=== PATIENT | male | born 1955 | race Caucasian/White ===

== ENCOUNTER → 2020-03-15 09:59 | Outpatient (CLI) | payer MEDICARE, OTHER, SELFPAY ==
[2020-03-15 11:39] LABS: Add Manual Diff / Slide Review NO; Basophils Absolute Auto 0 /uL (0-100); Basophils Percent Auto 0.9 % (0-2); Eosinophils Absolute Auto 200 /uL (0-450); Eosinophils Percent Auto 3.6 % (2-4); Hematocrit 46.2 % (41-53); Hemoglobin 15.7 g/dL (13.5-17.5); Lymphocytes Absolute Auto 2100 /uL (1100-4500); Lymphocytes Percent Auto 38.3 % (25-40); Mean Corpuscular Hemoglobin 31.1 PG (26-34); Mean Corpuscular Volume 91.5 fL (80-100); Monocytes Absolute Auto 700 /uL (0-900); Monocytes Percent Auto 12.2 % (3-14); Neutrophils Absolute Auto 2500 /uL (1500-7000); Platelet Count 190 X10^3/uL (150-400); Red Blood Cell Count 5.05 X10^6/uL (4.5-5.9); Red Cell Distribution Width 13.4 % (11.6-14.8); White Blood Cell Count 5.5 X10^3/uL (4.5-11.0)
[2020-03-15 11:51] LABS: Alanine Aminotransferase 35 IU/L (<50); Albumin 4.7 g/dL (3.5-5.0); Albumin Globulin Ratio 1.4 (1.0-2.8); Alkaline Phosphatase 55 U/L (38-126); Aspartate Aminotransferase 34 IU/L (17-59); BUN Creatinine Ratio 19.1 (6-22); Bilirubin Total 1.9 mg/dL (0.2-1.3); Blood Urea Nitrogen 17 mg/dL (9-20); Calcium 9.8 mg/dL (8.4-10.2); Carbon Dioxide 31 mmol/L (22-32); Chloride 101 mmol/L (98-107); Cholesterol 211 mg/dL (140-199); Estimated Glomerular Filt Rate > 60.0 mL/min (>60); Globulin 3.3 g/dL (1.7-4.1); Glucose 103 mg/dL (80-110); HDL Cholesterol 75 mg/dL (40-60); HEMOLYSIS < 15 (0-50); LDL Cholesterol Calculated 121 mg/dL (<100); Potassium 4.3 mmol/L (3.4-5.1); Sodium 137 mmol/L (137-145); Triglycerides 74 mg/dL (35-150)
[2020-03-15 12:21] LABS: Prostate Specific Antigen Scrn 1.01 ng/mL (0.1-4.0)
[2020-03-15 12:50] LABS: TSH w/ Reflex to FT4 2.28 uIU/mL (0.47-4.68)
[2020-03-18 10:08] LABS: Fecal Immunochemical Test Positive (Negative)
== END ==
PROVIDERS: PCP Internal Medicine; Referring Provider Internal Medicine; Visit Provider Internal Medicine
DX: G47.33 Obstructive sleep apnea (adult) (pediatric) (principal); Z13.1 Encounter for screening for diabetes mellitus; Z13.220 Encounter for screening for lipoid disorders; Z13.6 Encounter for screening for cardiovascular disorders; I10 Essential (primary) hypertension; Z12.5 Encounter for screening for malignant neoplasm of prostate; Z12.11 Encounter for screening for malignant neoplasm of colon
CPT/HCPCS: 36415; 80053; 80061; 82274; 84443; 85025; G0103

== ENCOUNTER → 2020-04-22 13:27 | Outpatient (CLI) | payer MEDICARE, OTHER, SELFPAY ==
[2020-04-23 10:09] LABS: COVID19 Sendout Not Detected (Not Detect)
== END ==
PROVIDERS: PCP Internal Medicine; Visit Provider Physician Assistant
DX: Z11.59 Encounter for screening for other viral diseases (principal)
CPT/HCPCS: 87635

== ENCOUNTER 2020-04-25 07:43 | Day surgery (SDC) | payer MEDICARE, OTHER, SELFPAY ==
--- NOTE | 2020-04-25 | PATH_ITS ---
[facility] Accession Number: [id number] . 01 Material submitted: . colon - COLON POLYP AT 70CM . 01 Clinical history: . COLONOSCOPY . 02 Diagnosis: Colon, Polyp at 70 cm, Biopsy: Tubular adenoma. MRV 04/30/2020 1337 Local . 02 Electronically signed: . Kaycee Kraus MD, Pathologist NPI- [id number] . 01 Gross description: . The specimen is received in formalin, labeled 70 cm colon polyp and consists of three flores-pink fragments of soft tissue measuring 0.6 x 0.5 x 0.2 cm in aggregate. The specimen is entirely submitted in cassette A1. ([id number]) /[facility] 04/26/2020 1711 Local . 02 Pathologist provided ICD-10: D12.6 . 02 CPT . 897990 Performed at: 01 [facility] [address] [id number] MD Satya Alvarez MD Phone: [phone] Performed at: 02 [facility] [address] [place], [place] [id number] MD Kaycee Kraus MD Phone: [phone]
[2020-04-25 08:06] VITALS: BP 150/96; PULSE 66; RESP 18; TEMP 36.1; O2SAT 99; BMI 25.4
[2020-04-25] MEDS: LACTATED RINGERS 1,000 ML 200 ML IV (08:21)
--- NOTE | 2020-04-25 08:29 | PM.PREOP ---
Pre-operative Note COVID-19 COVID-19 status: Negative Result date/Date tested (Pos, Neg/Pending): 04/22/20 Interval Note History & Physical reviewed/Exam performed by Physician: Yes Changes to H&P: No ASA Class (for procedural sedation): I
[2020-04-25] MEDS: fentaNYL 250 MCG/5 ML INJ IV ×4 (08:38→08:42)
[2020-04-25] MEDS: MIDAZOLAM 5 MG/5 ML VIAL IV ×4 (08:38→08:42)
--- NOTE | 2020-04-25 08:58 | PM.OP.ENDO ---
Operative Date/Time/Diagnoses Date of procedure: 04/25/20 Time of procedure: 08:58 Pre-op diagnosis: Positive fit test. This is his 1st colonoscopy. Post-op diagnosis: same (Small Polyp at 70 cm from the anal verge) Procedure & Clinicians Study performed: Colonoscopy with cold biopsy Same procedure as scheduled: Yes Indications: Screening. Positive fit test. Surgeon: Thom Petersen Procedure Notes SCOAP/Timeout: Performed Procedure in detail: The patient was placed in the left lateral decubitus position and underwent IV sedation directed by the surgeon consisting of fentanyl and Versed. Digital exam was unremarkable. His prostate is flat without mass.. The scope was inserted and advanced through the rectum into the sigmoid, descending, transverse, and ascending colon. Patient had extensive sigmoid diverticulosis and 1 or 2 ascending colon diverticuli.. The cecum was reached identified by the ileocecal valve and the appendiceal opening. The ileocecal valve was successfully cannulated. The terminal ileum was normal in appearance. The scope was gradually brought out. One Polyp was found at 70 cm from the anal verge. It was biopsied and removed.. The scope ultimately was retroflexed in the rectum. The appearance was normal. The scope was removed and the patient tolerated the procedure well. The prep was very good Scope withdrawal time: 6 minutes(7.25 total) Sedation minutes: 18 Findings: diverticulosis and polyp (One polyp at 70 cm from the anal verge) Specimen(s): other (Polyp) Complications: none Post-procedure Recommendations: Colonscopy in 5 years (If the biopsy is not adenomatous 10 years would be more appropriate.) Follow up: as needed Disposition: PACU
[2020-04-25 09:04] VITALS: BP 134/90; PULSE 68; RESP 14; TEMP 36.8; O2SAT 96
[2020-04-25 09:10] VITALS: BP 125/96; PULSE 73; RESP 13; O2SAT 96
[2020-04-25 09:14] VITALS: BP 133/86; PULSE 67; RESP 14; O2SAT 97
[2020-04-25 09:25] VITALS: BP 131/85; PULSE 67; RESP 10; O2SAT 97
[2020-04-25 09:55] VITALS: BP 135/87; PULSE 71; RESP 16; TEMP 36.5; O2SAT 98
== END 2020-04-25 09:57 | disposition home or self-care (01) ==
PROVIDERS: PCP Internal Medicine; Referring Provider Specialist; Visit Provider Specialist
PROC: 0DJD8ZZ Inspection of Lower Intestinal Tract, Via Natural or Artificial Opening Endoscopic (ICD-10-PCS; CPT 45378; principal; 2020-04-25 08:45)
DX: R19.5 Other fecal abnormalities (principal); G47.33 Obstructive sleep apnea (adult) (pediatric); K57.30 Diverticulosis of large intestine without perforation or abscess without bleeding; D12.6 Benign neoplasm of colon, unspecified
CPT/HCPCS: 45380; 99152; J2250; J3010

== ENCOUNTER → 2020-10-31 09:49 | Outpatient (CLI) | payer MEDICARE, OTHER, SELFPAY ==
[2020-10-31] MEDS: COVID-19 VACC, Ad26(JANSSEN)/PF 0.5 ML IM (09:56)
== END ==
PROVIDERS: PCP Internal Medicine; Visit Provider Internal Medicine
DX: Z23 Encounter for immunization (principal)
CPT/HCPCS: 0031A; 91303

== ENCOUNTER → 2020-12-16 17:59 | Outpatient (CLI) | payer MEDICARE, OTHER, SELFPAY ==
--- NOTE | 2020-12-16 | DI.MRI.S_ITS ---
PROCEDURE: MR LUMBAR SPINE WO CON INDICATIONS: Spinal stenosis, lumbar region with neurogenic cla TECHNIQUE: Noncontrast sagittal T1 spin echo and T2 fast echo, coronal T2, sagittal STIR, axial T1 and T2 fast spin echo through the lumbar spine. In cases with scoliosis, additional coronal T2 fast spin echo may be performed. COMPARISON: [facility], CR, XR LUMBAR SPINE WITH OLBIQUES PLUS FLEXION EXTENSION, 12/09/2020, 15:13. FINDINGS: Image quality: Excellent. Alignment and Curvature: 5 lumbar type vertebral bodies are present by plain film. Moderate leftward curvature of the lumbar spine is present. Mild grade 1 retrolisthesis of L2 on L3. Bone Marrow: Marrow is of normal overall signal. No acute vertebral body compression fractures. Mild reactive signal within the endplates adjacent to the T T12-L1, L1-L2, L2-L3, L3-L4, and L4-L5 intervertebral discs. Spinal Cord: Conus medullaris terminates at the L1-L2 disc space level. Visualized cord demonstrates normal signal and size. Paraspinous Soft Tissues: No paravertebral masses. T12-L1: Moderate disc height loss and desiccation. Mild diffuse disc bulge. Mild facet and ligamentum flavum hypertrophy. Mild canal stenosis. Mild bilateral foraminal stenosis. L1-L2: Mild disc desiccation and diffuse disc bulge. Mild facet and ligamentum flavum hypertrophy. Mild canal stenosis. Mild bilateral foraminal stenosis. L2-L3: Mild disc desiccation and disc height loss. Mild diffuse disc bulge. Mild canal stenosis. Mild bilateral foraminal stenosis. L3-L4: Mild disc height loss and desiccation. Mild diffuse disc bulge. Mild facet and ligamentum flavum hypertrophy. Mild epidural lipomatosis. Mild canal stenosis. Mild bilateral foraminal stenosis. L4-L5: Mild disc height loss. Moderate disc desiccation. Mild diffuse disc bulge. Mild facet and ligamentum flavum hypertrophy. Mild canal stenosis. Moderate left and mild right foraminal stenosis. L5-S1: Mild disc height loss and desiccation. Mild diffuse disc bulge with superimposed right posterolateral disc protrusion. Mild bilateral facet hypertrophy. Mild canal stenosis. Moderate left and mild right subarticular foraminal stenosis. Compression and posterior deviation of the right S1 nerve root within the lateral recess. IMPRESSION: 1. Multilevel degenerative disc and facet disease, as well as ligamentum flavum hypertrophy and epidural lipomatosis. 2. Mild multilevel canal stenosis. 3. Multilevel foraminal stenosis, worst at L4-L5 and L5-S1, where there are moderate foraminal stenosis. 4. L5-S1 disc protrusion, causing compression and posterior deviation of the right S1 nerve root. Recommend correlation with clinical symptoms to ascertain relevance of this finding. Dictated by: Jose Arriola M.D. on 12/17/2020 at 9:38 Approved by: Jose Arriola M.D. on 12/17/2020 at 9:42
== END ==
PROVIDERS: PCP Internal Medicine; Referring Provider Physical Medicine & Rehabilitation Pain Medicine; Visit Provider Physical Medicine & Rehabilitation Pain Medicine
DX: M48.062 Spinal stenosis, lumbar region with neurogenic claudication (principal); M51.36 Other intervertebral disc degeneration, lumbar region; M51.37 Other intervertebral disc degeneration, lumbosacral region; M48.07 Spinal stenosis, lumbosacral region; M51.27 Other intervertebral disc displacement, lumbosacral region; E88.2 Lipomatosis, not elsewhere classified
CPT/HCPCS: 72148

== ENCOUNTER → 2025-03-27 08:10 | Outpatient (CLI) | payer MEDICARE, SELFPAY ==
[2025-03-27 09:51] LABS: Alanine Aminotransferase 26 IU/L (<50); Albumin 4.6 g/dL (3.5-5.0); Albumin Globulin Ratio 1.5 (1.0-2.8); Alkaline Phosphatase 61 U/L (38-126); Blood Urea Nitrogen 13 mg/dL (9-20); Calcium 9.3 mg/dL (8.4-10.2); Carbon Dioxide 26 mmol/L (22-32); Chloride 102 mmol/L (98-107); Cholesterol 204 mg/dL (140-199); Estimated Glomerular Filt Rate > 60 mL/min (>60); Globulin 3.0 g/dL (1.7-4.1); Glucose 93 mg/dL (70-99); HDL Cholesterol 69 mg/dL (40-60); HEMOLYSIS < 15 (0-50); Potassium 4.4 mmol/L (3.4-5.1); Sodium 136 mmol/L (137-145); Total Protein 7.6 g/dL (6.3-8.2); Triglycerides 71 mg/dL (35-150)
== END ==
PROVIDERS: PCP Internal Medicine; Referring Provider Internal Medicine; Visit Provider Internal Medicine
DX: Z13.6 Encounter for screening for cardiovascular disorders (principal); Z12.5 Encounter for screening for malignant neoplasm of prostate; E80.4 Gilbert syndrome; Z13.220 Encounter for screening for lipoid disorders; Z13.1 Encounter for screening for diabetes mellitus
CPT/HCPCS: 36415; 80053; 80061; G0103

== ENCOUNTER 2025-05-30 08:56 | Day surgery (SDC) | payer MEDICARE, SELFPAY ==
[2025-05-30 09:39] VITALS: BP 142/92; PULSE 86; RESP 16; TEMP 36.1; O2SAT 100
[2025-05-30] MEDS: LACTATED RINGERS 1,000 ML 42 ML IV (09:52)
--- NOTE | 2025-05-30 10:11 | P.HP_ITS ---
History of Present Illness History of Present Illness Date Patient Seen: 05/30/25 Chief complaint: Screening Colonoscopy [facility] Medical History Cataracts, bilateral (~2013) History of adenomatous polyp of colon Diverticular disease of colon Vision disorder Chicken pox Vertigo (~1999) Tinnitus Hemorrhoid (~2017) Gilbert syndrome Cataract Retinal detachment Hayfever Obstructive sleep apnea of adult Surgical History Anesthesia History of eye surgery (~2014) Family History Father Hypertension Heart disease Smoker Overweight Hyperlipidemia Mother Melanoma Brain tumor Brother Cancer Brother Hypertension Hyperlipidemia Brother Mental health problem Sister Suicide Mental health problem Social History marital status: household members: spouse occupational status: previously employed Smoking Status: Never smoker alcohol intake: current substance use type: marijuana Meds Home Medications and Allergies Home Medications ?Medication ?Instructions ?Recorded ?Confirmed ?Type ibuprofen 200 mg capsule 400 mg PO ONCE PRN pain 02/2005/30/25 History sodium,potassium,mag sulfates 17.5 See Rx Instructions PO .COMPLEX 05/01/25 05/30/25 Rx gram-3.13 gram-1.6 gram oral soln #354 mL (Suprep Bowel Prep Kit) Allergies Allergy/AdvReac Type Severity Reaction Status Date / Time No Known Drug Allergies Allergy Verified 05/30/25 09:45 Exam Vital Signs (past 8 hours): - 05/30/25 09:39 Temperature 96.9 F L Pulse Rate 86 Respiratory Rate 16 Blood Pressure 142/92 H Pulse Oximetry 100 Oxygen Delivery Method Room Air Oxygen Delivery Method Room Air Narrative Exam Narrative: Oropharynx free of lesions Chest clear to auscultation percussion Cardiac exam reveals no S3 or murmur Objective Labs Labs: Laboratory Results - last 24 hr 05/30/25 09:46 POC Whole Bld Glucose 77 Assessment & Plan Assessment & Plan narrative: History of adenomatous colon polyps need for follow-up colonoscopy at a 5 year interval. Risks, benefits, alternatives have been explained. Time-Based Coding :: [TOTAL MINUTES] spent with patient and on the chart (including review of chart, obtaining history, exam, reviewing outside data, placing orders, documenting exam and treatment plan, and counseling patient) on [DATE]. PROFEE Dike Supervisor Document charge(s): No
--- NOTE | 2025-05-30 10:13 | PM.OP.COLON ---
Operative Date/Time/Diagnoses Date of procedure: 05/23/25 Time of procedure: 10:58 Pre-op diagnosis: See indication and findings Post-op diagnosis: same Procedure & Clinicians Study performed: Colonoscopy Same procedure(s) as scheduled: Yes Indications: Follow-up screening colonoscopy for history of colon polyps Surgeon: Melissa Basilio Anesthesia Type: Other Procedure Notes Procedure in detail: After informed consent was obtained the patient was placed in left lateral decubitus position. The video colonoscope was placed in the rectum slowly advanced cecum. Preparation was good. On slow withdrawal mucosa was carefully examined. The scope was removed. The patient tolerated procedure well. Blood loss none Complications none Sedation mac Findings 1. Negative colonoscopy to cecum Patient should have follow-up colonoscopy in 5 years for history of colon polyps.
[2025-05-30 11:02] VITALS: BP 111/68; PULSE 70; RESP 16; TEMP 36.3; O2SAT 97
[2025-05-30 11:05] VITALS: BP 112/69; PULSE 66; RESP 16; O2SAT 95
[2025-05-30 11:10] VITALS: BP 114/71; PULSE 68; RESP 12; O2SAT 96
[2025-05-30 11:15] VITALS: BP 132/75; PULSE 67; RESP 17; TEMP 36.4; O2SAT 100
[2025-05-30 11:20] VITALS: BP 138/85; PULSE 74; RESP 16; TEMP 36.4; O2SAT 97
--- NOTE | 2025-05-30 11:38 | SUR.PHASEII ---
small red rash noted near where the electrode stickers were placed on the patient. patient denies any itching or pain. patient denied any trouble breathing or swallowing. anesthesia aware and assessed the patient and okay with patient to go home.
== END 2025-05-30 11:40 | disposition home or self-care (01) ==
PROVIDERS: PCP Internal Medicine; Referring Provider Internal Medicine Gastroenterology; Visit Provider Internal Medicine Gastroenterology
PROC: 0DJD8ZZ Inspection of Lower Intestinal Tract, Via Natural or Artificial Opening Endoscopic (ICD-10-PCS; CPT 45378; principal; 2025-05-30 10:00)
DX: Z12.11 Encounter for screening for malignant neoplasm of colon (principal); Z86.0101 Personal history of adenomatous and serrated colon polyps
CPT/HCPCS: G0105; 82962; J2704; J7120